=== PATIENT | female | born 1955 | race Caucasian/White ===

== ENCOUNTER → 2022-12-08 | Outpatient (CLI) | payer MEDICARE, OTHER ==
[~2022-12-08] MED LIST: GADOTERATE 0.5 MMOL/ML (CLARISCAN) 20 ML VIAL IV ONE
--- NOTE | 2022-12-08 17:25 | Diagnostic Imaging Report ---
PROCEDURE: MRI pelvis with and without contrast. TECHNIQUE: Multiplanar, multisequence MRI of the pelvis was performed with and without contrast. In addition, small [id number] sequences of the left hip were obtained. INDICATION: Abnormal outside x-ray. COMPARISON: Outside radiographs from 12/01/2022. FINDINGS: No acute fracture is seen in the pelvis. Alignment appears normal. There is no joint effusion. There are mild degenerative changes in the hip joints bilaterally. Bone marrow is diffusely heterogeneous, which is nonspecific but no focal lesions are seen. No enhancing lesions are identified. Previously described lytic lesion overlying the left pelvis likely represents bowel gas. The left iliopsoas tendon is intact. There is mild tendinopathy of the left gluteus minimus and medius tendons. There is edema and enhancement of the left quadratus femoris. There also appears to be mild edema in the right quadratus femoris. The hamstring tendon origin appears normal. No masses or fluid collections are seen. There is mild atrophy in the left gluteus medius and minimus musculature. No free fluid is seen in the pelvis. There is a right ovarian cyst measuring 3.6 cm in diameter. IMPRESSION: 1. Nonspecific heterogeneity of the bone marrow, likely due to red marrow reconversion. There are no discrete lesions seen in the left iliac bone and previously described lytic lesion likely represents overlying bowel gas. 2. Tendinopathy of the left gluteus medius and minimus tendons with mild associated muscular atrophy. 3. Findings suggestive of ischiofemoral impingement bilaterally. 4. Right ovarian cyst. This appears benign. Given the size and patient age, consider follow-up ultrasound in six months. Dictated by: Dictated on workstation # [id number]
== END ==
LOC: RAD 13:26
PROVIDERS: ATTEND Student in an Organized Health Care Education/Training Program
DX: M89.9 Disorder of bone, unspecified (principal); M25.852 Other specified joint disorders, left hip; N83.201 Unspecified ovarian cyst, right side
CPT/HCPCS: 72197